=== PATIENT | male | born 1950 | race Caucasian/White ===

== ENCOUNTER → 2016-09-10 | Outpatient (CLI) | payer MEDICARE ==
[~2016-09-10] MED LIST: REGADENOSON 0.4 MG/5 ML DISP.SYRIN. IV ONE
== END | disposition home or self-care (01) ==
LOC: PCVCIMAG 09:29
PROVIDERS: ATTEND Internal Medicine Cardiovascular Disease
DX: I25.10 Atherosclerotic heart disease of native coronary artery without angina pectoris (principal); I10 Essential (primary) hypertension; I48.0 Paroxysmal atrial fibrillation
CPT/HCPCS: 78452; 93017; A9500; J2785

== ENCOUNTER → 2016-12-26 | Outpatient (CLI) | payer MEDICARE | END | disposition home or self-care (01) | LOC: PCVCCLINIC 11:40 | PROVIDERS: ATTEND Internal Medicine Cardiovascular Disease | DX: I25.10 Atherosclerotic heart disease of native coronary artery without angina pectoris (principal); E78.00 Pure hypercholesterolemia, unspecified; R07.9 Chest pain, unspecified; I48.91 Unspecified atrial fibrillation; I10 Essential (primary) hypertension; I05.9 Rheumatic mitral valve disease, unspecified; R53.83 Other fatigue | CPT/HCPCS: 93005; G0463 ==

== ENCOUNTER → 2017-02-14 | Outpatient (CLI) | payer MEDICARE ==
--- NOTE | 2017-02-14 11:45 | PCVCIMAG ---
APPROVED REPORT Study performed: 02/14/2017 10:12:23 EXAM: Comprehensive 2D, Doppler, and color-flow Echocardiogram Patient Location: Echo lab Status: routine Other Information Study Quality: Good Indications Mitral Valve Disease Atrial Fibrillation CAD Cardiomyopathy 2D Dimensions LVEF(%): 53.21 (>50%) IVSd: 10.30 (7-11mm)LVOT Diam: 24.76 (18-24mm) LVDd: 51.76 mm PWd: 10.10 (7-11mm)Ascending Ao: 34.57 (22-36mm) LVDs: 37.48 (25-40mm) Left Atrium: 62.05 (27-40mm) Aortic Root: 28.04 mm LV Single Plane 4CH: 46.02 % LV Single Plane 2CH: 48.99 %De León's LVEF: 47.51 % Biplane EF: 47.9 % Volumes Left Atrial Volume (Systole) Single Plane 4CH: 97.49 mLSingle Plane 2CH: 108.85 mL LA ESV Index: 47.00 mL/m2 Aortic Valve AoV Peak Jared.: 1.32 m/s AO Peak Gr.: 7.85 mmHgLVOT Max P.58 mmHg LVOT Max V: 0.77 m/s MEENA Vmax: 2.82 cm2 AI Vmax: 4.19 m/s AI Harvey: 1.89 m/s2 AI PHT: 652.85 ms Mitral Valve MV Peak Gr.: 15.06 mmHg MV Mean Gr.: 5.17 mmHg MV E Max Jraed.: 1.86 m/s MV Max Jared.: 1.94 m/s MV Mean Jared.: 1.04 m/s MV VTI: 454.21 mm MV PHT: 99.92 ms MVA (PHT): 2.20 cm2 IVRT: 50.75 ms Pulmonary Valve PV Peak Jared.: 0.82 m/sPV Peak Gr.: 2.70 mmHg Tricuspid Valve TR Peak Jared.: 3.03 m/s TR Peak Gr.: 36.84 mmHg TV Vmax: 0.89 m/s Left Ventricle The left ventricle is normal size. There is global hypokinesis of the left ventricle. Paradoxical septal motion consistent with post-operative state. Borderline concentric left ventricular hypertrophy. Left ventricular systolic function is mildly decreased. LVEF is 45-50%. This study is not technically sufficient to allow evaluation of the LV diastolic function due to atrial fibrillation. Right Ventricle The right ventricle is normal size. The right ventricular systolic function is normal. Atria Left atrium is moderately dilated. The interatrial septum is intact with no evidence for an atrial septal defect. Right atrium is moderately dilated. Aortic Valve The aortic valve is normal in structure. Aortic valve leaflets are mildly sclerotic but open well. Mild aortic regurgitation. There is no aortic valvular stenosis. Mitral Valve Posterior mitral valve leaflet is thickened and fixed consistent with prior mitral valve repair surgery. Mitral regurgitation jet is eccentrically directed. Mitral regurgitation is present, but cannot assess severity. Borderline mitral stenosis. Tricuspid Valve The tricuspid valve is normal in structure. There is trace tricuspid valve regurgitation noted with a PA pressure of 44mmHg. Pulmonic Valve The pulmonary valve is normal in structure. <Conclusion> The left ventricle is normal size. Borderline concentric left ventricular hypertrophy. LVEF is 45-50%. Left atrium is moderately dilated. The aortic valve is normal in structure. Aortic valve leaflets are mildly sclerotic but open well. Mild aortic regurgitation. Mild aortic regurgitation. Posterior mitral valve leaflet is thickened and fixed consistent with prior mitral valve repair surgery. Mitral regurgitation jet is eccentrically directed. Mitral regurgitation is present, but cannot assess severity. There is trace tricuspid valve regurgitation noted with a PA pressure of 44mmHg.
== END | disposition home or self-care (01) ==
LOC: PCVCIMAG 09:56
PROVIDERS: ATTEND Internal Medicine Cardiovascular Disease
DX: I08.3 Combined rheumatic disorders of mitral, aortic and tricuspid valves (principal); I48.2 Chronic atrial fibrillation; I25.10 Atherosclerotic heart disease of native coronary artery without angina pectoris; E78.00 Pure hypercholesterolemia, unspecified; I10 Essential (primary) hypertension; I65.29 Occlusion and stenosis of unspecified carotid artery; Z88.1 Allergy status to other antibiotic agents; Z79.82 Long term (current) use of aspirin; Z79.899 Other long term (current) drug therapy; Z87.442 Personal history of urinary calculi; Z95.1 Presence of aortocoronary bypass graft
CPT/HCPCS: 80061; 93005; 93306; G0463

== ENCOUNTER → 2017-02-17 | Outpatient (CLI) | payer MEDICARE ==
[~2017-02-17] MED LIST changes: +IV NORMAL SALINE 1000ML BAG 1,000 ML ONE; +MIDAZOLAM HCL/PF 2 MG/2 ML VIAL. ONE; -REGADENOSON 0.4 MG/5 ML DISP.SYRIN. IV ONE; +fentaNYL PF VIAL 100 MCG/2 ML VIAL ONE
== END | disposition home or self-care (01) ==
LOC: PCVCINTER 10:46
PROVIDERS: ATTEND Internal Medicine
DX: I48.91 Unspecified atrial fibrillation (principal)
CPT/HCPCS: 92960; J2250; J3010; J7030

== ENCOUNTER → 2017-02-24 | Outpatient (CLI) | payer MEDICARE | END | disposition home or self-care (01) | LOC: PCVCCLINIC 16:35 | PROVIDERS: ATTEND Internal Medicine Cardiovascular Disease | DX: I48.91 Unspecified atrial fibrillation (principal); I10 Essential (primary) hypertension; I25.810 Atherosclerosis of coronary artery bypass graft(s) without angina pectoris; E78.00 Pure hypercholesterolemia, unspecified; Z98.890 Other specified postprocedural states; I05.9 Rheumatic mitral valve disease, unspecified; Z79.82 Long term (current) use of aspirin; Z79.899 Other long term (current) drug therapy | CPT/HCPCS: 93005; G0463 ==

== ENCOUNTER → 2017-05-14 | Outpatient (CLI) | payer MEDICARE ==
--- NOTE | 2017-05-14 16:28 | PCVCIMAG ---
APPROVED REPORT Study performed: 05/14/2017 14:00:34 EXAM: Comprehensive 2D, Doppler, and color-flow Echocardiogram Patient Location: Echo lab Status: routine BSA: 2.18 HR: 44 bpmBP: 100/60 mmHg Rhythm: NSR, Bradycardia Other Information Study Quality: Adequate Indications Atrial Fibrillation Bradycardia CAD CABG, Post cardioversion for A Fib, assess atrial size 2D Dimensions LVEF(%): 46.60 (>50%) IVSd: 10.01 (7-11mm) LVDd: 57.77 mm PWd: 10.57 (7-11mm)Ascending Ao: 34.76 (22-36mm) LVDs: 44.10 (25-40mm) Left Atrium: 52.32 (27-40mm) Aortic Root: 37.38 mm LV Single Plane 4CH: 55.79 % LV Single Plane 2CH: 53.22 %De León's LVEF: 54.51 % Biplane EF: 54.6 % Volumes Left Atrial Volume (Systole) Single Plane 4CH: 124.76 mLSingle Plane 2CH: 116.91 mL LA ESV Index: 44.00 mL/m2 Left Ventricle The left ventricle is mildly dilated. There is normal LV segmental wall motion. There is normal left ventricular wall thickness. Left ventricular systolic function is within lower limits of normal. LVEF is 50%. The left ventricular diastolic function was not assessed. Right Ventricle The right ventricle is normal size. The right ventricular systolic function is normal. Atria Left atrium is severely dilated. Right atrium is severely dilated. Aortic Valve The aortic valve is normal in structure. Mild aortic regurgitation. There is no aortic valvular stenosis. Mitral Valve Mitral valve repair without stenosis. Mild to moderate mitral regurgitation. No evidence of mitral valve stenosis. Tricuspid Valve The tricuspid valve is normal in structure. Trace tricuspid regurgitation. Pulmonic Valve The pulmonary valve is normal in structure. There is no pulmonic valvular regurgitation. Great Vessels The aortic root is normal in size. IVC is normal in size and collapses with >50% inspiration Pericardium There is no pericardial effusion. <Conclusion> Left ventricular systolic function is within lower limits of normal. The left ventricle is mildly dilated. LVEF is 50%. The right ventricle is normal size. Left atrium is severely dilated. Right atrium is severely dilated. Mild aortic regurgitation. There is no aortic valvular stenosis. Mild to moderate mitral regurgitation. Trace tricuspid regurgitation. There is no pericardial effusion.
== END | disposition home or self-care (01) ==
LOC: PCVCIMAG 13:56
PROVIDERS: ATTEND Internal Medicine Cardiovascular Disease
DX: I08.3 Combined rheumatic disorders of mitral, aortic and tricuspid valves (principal); I25.10 Atherosclerotic heart disease of native coronary artery without angina pectoris; R00.1 Bradycardia, unspecified; I48.0 Paroxysmal atrial fibrillation; I10 Essential (primary) hypertension; E78.00 Pure hypercholesterolemia, unspecified; Z87.442 Personal history of urinary calculi; Z95.1 Presence of aortocoronary bypass graft; Z79.82 Long term (current) use of aspirin; Z88.0 Allergy status to penicillin; Z98.890 Other specified postprocedural states
CPT/HCPCS: 93005; 93308; G0463

== ENCOUNTER → 2017-09-17 | Outpatient (CLI) | payer MEDICARE | END | disposition home or self-care (01) | LOC: PCVCCLINIC 14:43 | DX: I25.10 Atherosclerotic heart disease of native coronary artery without angina pectoris (principal); I10 Essential (primary) hypertension; E78.00 Pure hypercholesterolemia, unspecified; I05.9 Rheumatic mitral valve disease, unspecified; I48.0 Paroxysmal atrial fibrillation; I45.10 Unspecified right bundle-branch block; R94.31 Abnormal electrocardiogram [ECG] [EKG]; Z95.1 Presence of aortocoronary bypass graft; Z79.899 Other long term (current) drug therapy; Z79.82 Long term (current) use of aspirin; Z88.0 Allergy status to penicillin | CPT/HCPCS: 80061; 93005; G0463 ==

== ENCOUNTER → 2018-03-17 | Outpatient (CLI) | payer MEDICARE | END | disposition home or self-care (01) | LOC: PCVCIMAG 12:02 | DX: I25.10 Atherosclerotic heart disease of native coronary artery without angina pectoris (principal); E78.5 Hyperlipidemia, unspecified; I10 Essential (primary) hypertension; I48.0 Paroxysmal atrial fibrillation; Z95.1 Presence of aortocoronary bypass graft | CPT/HCPCS: 93325; 93351 ==

== ENCOUNTER → 2018-08-06 | Outpatient (CLI) | payer MEDICARE | END | disposition home or self-care (01) | LOC: PCVCCLINIC 11:14 | PROVIDERS: ATTEND Internal Medicine Cardiovascular Disease | DX: I25.10 Atherosclerotic heart disease of native coronary artery without angina pectoris (principal); I48.0 Paroxysmal atrial fibrillation; R94.31 Abnormal electrocardiogram [ECG] [EKG]; E78.00 Pure hypercholesterolemia, unspecified; I10 Essential (primary) hypertension; D68.59 Other primary thrombophilia; I65.23 Occlusion and stenosis of bilateral carotid arteries; I05.9 Rheumatic mitral valve disease, unspecified; Z95.1 Presence of aortocoronary bypass graft; Z86.73 Personal history of transient ischemic attack (TIA), and cerebral infarction without residual deficits; Z72.89 Other problems related to lifestyle; Z79.82 Long term (current) use of aspirin; Z88.0 Allergy status to penicillin; Z88.8 Allergy status to other drugs, medicaments and biological substances | CPT/HCPCS: 80061; 93005; G0463 ==

== ENCOUNTER → 2019-03-30 | Outpatient (CLI) | payer MEDICARE ==
--- NOTE | 2019-03-30 14:08 | PCVCIMAG ---
APPROVED REPORT Study performed: 03/30/2019 11:00:36 Exam: Stress Echocardiogram Indication: CAD s/p CABG, Mitral Valve Repair, Dyspnea Patient Location: Echo lab Stress Nurse: Rona Olivera RN Status: routine Ht: 6 ft 0 in HR: 83 bpm BP: 130/80 mmHg Rhythm: NSR Medical History Medical History: Cardiomyopathy, CABG, Mitral Valve Repair, PAF Procedure The patient underwent an Exercise Stress Test using the Terrance Protocol. Blood pressure, heart rate, and EKG were monitored. An Echocardiogram was performed by manufacturing lab technician in four stages in quad fashion. At peak stress, four selected images were obtained and placed side by side with resting images for comparison. Stress Test Details Stress Test: Exercise stress testing was performed using a Terrance protocol. HR Resting HR: 83 bpmMax Heart Rate (APMHR): 153 bpm Max HR Achieved: 150 bpmTarget HR (85% APMHR): 130 bpm % of APMHR: 98 Recovery HR: 95 bpm HR response to stress: Normal HR response to stress BP Resting BP: 130/80 mmHg Max BP: 174/80 mmHg Recovery BP: 142/76 mmHg BP response to stress: Normal blood pressure response to stress. ECG Resting ECG: Sinus Rhythm Stress ECG: Clear Arrhythmia: PVC'S, couplets Recovery ECG: PVC's, couplets Recovery Arrhythmia: PVC's, couplets Clinical Reason for Termination: Maximal effort Stress Symptoms: Dyspnea Exercise duration: 6 min 36 sec Highest Stage Achieved: Stage 3: 3.4 mph at 14% grade. Exercise capacity: 8.80 METs Overall Exercise Capacity for Age: Normal Pre-Stress Echo The resting Echocardiogram showed abnormal left ventricular contractility with an estimated Ejection Fraction of about 40-45%. Discordant septum. Post-Stress Echo The stress Echocardiogram showed abnormal left ventricular contractility with an estimated Ejection Fraction of about 50%. Discordant septum. No new regional wall motion abnormalities. Conclusion Clinical Response: Non-ischemic Exercise Capacity: Average Stress ECG Response: Non-ischemic Stress Echo Images: Non-ischemic History of mitral valve repair. Mild mitral regurgitation very eccentric jet. Trace tricuspid regurgitation. Pulmonary artery pressure is 40mmHg. Other Information Study Quality: Good <Conclusion> History of mitral valve repair. Mild mitral regurgitation very eccentric jet. Trace tricuspid regurgitation. Pulmonary artery pressure is 40mmHg.
== END | disposition home or self-care (01) ==
LOC: PCVCIMAG 10:51
PROVIDERS: ATTEND Internal Medicine Cardiovascular Disease
DX: I34.0 Nonrheumatic mitral (valve) insufficiency (principal); I25.10 Atherosclerotic heart disease of native coronary artery without angina pectoris; E78.00 Pure hypercholesterolemia, unspecified; Z95.1 Presence of aortocoronary bypass graft; Z88.0 Allergy status to penicillin
CPT/HCPCS: 93325; 93351

== ENCOUNTER → 2019-08-30 | Outpatient (CLI) | payer MEDICARE | END | disposition home or self-care (01) | LOC: PCVCCLINIC 14:23 | PROVIDERS: ATTEND Internal Medicine Cardiovascular Disease | DX: I25.10 Atherosclerotic heart disease of native coronary artery without angina pectoris (principal); I48.0 Paroxysmal atrial fibrillation; E78.00 Pure hypercholesterolemia, unspecified; D68.59 Other primary thrombophilia; I10 Essential (primary) hypertension; I05.9 Rheumatic mitral valve disease, unspecified; I65.23 Occlusion and stenosis of bilateral carotid arteries; R94.31 Abnormal electrocardiogram [ECG] [EKG]; I45.10 Unspecified right bundle-branch block; E78.5 Hyperlipidemia, unspecified; Z72.89 Other problems related to lifestyle; Z88.0 Allergy status to penicillin; Z79.82 Long term (current) use of aspirin; Z95.1 Presence of aortocoronary bypass graft; Z79.899 Other long term (current) drug therapy | CPT/HCPCS: 36415; 80061; 93005; G0463 ==